=== PATIENT | female | born 2000 | race Caucasian/White ===

== ENCOUNTER 2024-05-01 04:06 | Emergency (ER) | payer SELFPAY ==
[~2024-05-01] VITALS: Ht 157.5 cm; Wt 73.0 kg
[2024-05-01 04:16] VITALS: O2SAT 98
[2024-05-01 04:23] VITALS: BP 128/83; PULSE 73; RESP 18; O2SAT 98
[2024-05-01] MEDS ORDERED: DIPH1POW PO (04:39)
[2024-05-01] MEDS: ACETAMINOPHEN 325MG TABLET PO ONE (04:50)
== END 2024-05-01 05:08 | disposition home or self-care (01) ==
LOC: ER 04:06
DX: B34.9 Viral infection, unspecified (principal)
CPT/HCPCS: 99282